=== PATIENT | male | born 1945 | race Caucasian/White ===

== ENCOUNTER 2021-05-08 06:00 | Emergency (ER) | payer MEDICARE, OTHER ==
[2021-05-08] MEDS ORDERED: EPINEPHrine HCL 1 MG/10 ML SYRG IV ONE (06:01)
[2021-05-08] MEDS ORDERED: SODIUM BICARBONATE 8.4% INJ 50ML SYRINGE IV ONE (06:01)
[2021-05-08] MEDS ORDERED: dilTIAZem 25 MG/5 ML VIAL IV ONE (06:15)
[2021-05-08] MEDS ORDERED: MAGNESIUM SULFATE 1GM/100ML 200 ML IV ONE (06:19)
[2021-05-08] MEDS ORDERED: LORazepam 2MG/ML-1ML VIAL IV ONE ×2 (06:30→08:15)
[2021-05-08] MEDS ORDERED: methylPREDNISolone SOD SUCC 125 MG/2 ML VL IV ONE (07:00)
[2021-05-08] MEDS: MAGNESIUM SULFATE 1GM/100ML 100 ML IV SCH ×2 (07:20→08:13)
[2021-05-08] MEDS ORDERED: cefTRIAXone 1GM/50ML D5W 50 ML IV ONE (09:15)
[2021-05-08] MEDS ORDERED: AZITHROMYCIN 500MG/ 250ML 250 ML IV ONE (09:15)
[2021-05-08 09:20] LABS: Basophils # (auto) 0 10 ^3/uL (0-0.2); Basophils % (auto) 0.1 % (0.0-2.0); Eosinophils # (auto) 0 10 ^3/uL (0-0.8); Eosinophils % (auto) 0.1 % (0.0-7.0); Hemoglobin 15.5 g/dL (13.5-17.5); Lymphocytes # (auto) 0.6 10 ^3/uL (0.4-5.4); Lymphocytes % (auto) 2.8 % (10.0-50.0); Mean Corpuscular Hemoglobin 32.7 pg (28.0-32.0); Mean Corpuscular Hgb Conc. 34.5 g/dL (32.0-36.0); Mean Corpuscular Volume 94.6 fL (80.0-100.0); Monocytes # (auto) 0.3 10 ^3/uL (0-1.3); Monocytes % (auto) 1.7 % (0.0-12.0); Neutrophils # (auto) 19.1 10 ^3/uL (1.6-8.6); Neutrophils % (auto) 95.3 % (37.0-80.0); Nucleated Red Blood Cells % 0.2 %; Red Blood Cells 4.75 10^6/uL (4.5-5.90); Red Cell Distribution Width 13.5 % (11.8-14.3)
[2021-05-08 09:29] LABS: INR 2.11 (0.9-1.15)
[2021-05-08 09:36] LABS: Albumin 2.3 g/dL (3.4-5.0); BUN/Creatinine Ratio 19.1; Bilirubin, Total 3.8 mg/dL (0.2-1.0); Calcium 8.8 mg/dL (8.5-10.1); Total Protein 7.4 g/dL (6.4-8.2)
[2021-05-08] MEDS ORDERED: HALOPERIDOL LACTATE 5 MG/ML INJ VIAL ONE (09:36)
[2021-05-08] MEDS ORDERED: HALOPERIDOL LACTATE 5 MG/ML INJ VIAL IM ONE (09:45)
[2021-05-08 10:00] VITALS: BP 111/81
[2021-05-08] MEDS ORDERED: diphenhdrAMINE HCL 50 MG/1 ML VL ONE (10:09)
[2021-05-08] MEDS ORDERED: diphenhdrAMINE HCL 50 MG/1 ML VL IV ONE (10:15)
== END 2021-05-08 22:45 | disposition home or self-care (01) ==
LOC: EDBD 06:00 → ER 06:00
DX: J96.01 Acute respiratory failure with hypoxia (principal); J18.9 Pneumonia, unspecified organism; Z20.822 Contact with and (suspected) exposure to COVID-19
CPT/HCPCS: 36415; 36600; 71045; 80053; 82728; 82805; 83880; 84484; 85025; 85610; 86141; 87426; 92950; 93005; 96365; 96366; 96368; 96372; 96375; 96376; 99291; J0171; J0456; J0696; J1200; J1630; J2060; J2930; J3475